=== PATIENT | female | born 1945 | race Caucasian/White ===

== ENCOUNTER 2017-04-07 08:45 | Day surgery (SDC) | payer MEDICARE, BC ==
[~2017-04-07 08:45] MED LIST: Metoclopramide 10 MG/2 ML SDV IV PRN; Sodium Chloride 0.9% 1,000 ML IV SCH; Sodium Chloride 0.9% 10 ML Syringe FLUSH PRN
[2017-04-07] MEDS ORDERED: ePHEDrine 50 MG/ML SDV ONE (10:30)
[2017-04-07] MEDS ORDERED: Propofol 200 MG/20 ML SDV ONE (10:30)
[2017-04-07 11:15] VITALS: BP 120/78
--- NOTE | 2017-04-07 12:03 | OR ---
DATE OF OPERATION: 04/07/2017 PREOPERATIVE DIAGNOSIS: History of colon polyps. POSTOPERATIVE DIAGNOSIS: History of colon polyps. PROCEDURE: Colonoscopy. ANESTHESIA: MAC. ESTIMATED BLOOD LOSS: None. COMPLICATIONS: None. INDICATIONS FOR THE PROCEDURE: The patient is a 71-year-old female, here for surveillance colonoscopy. She had previous colonoscopy five years ago and was found to have a polyp at that time. The patient denies any change in bowel habits or blood in the stool since that time. DESCRIPTION OF PROCEDURE: Informed consent was obtained from the patient. The patient was taken to the operating room and placed on the table in the left lateral decubitus position. Monitored anesthesia care was administered. Digital rectal exam revealed no masses. Colonoscope was then advanced through the anus directed towards the cecum. Abdominal pressure was utilized. Cecum was reached, identified by ileocecal valve and appendiceal orifice. The cecum appeared to be normal. The colonoscope was then slowly withdrawn. No masses, no polyps, no areas of inflammation or ischemia, and no AV malformations were identified. The patient did have some mild diverticulosis in the sigmoid colon, otherwise unremarkable. Colonoscope was then withdrawn to the rectum. Rectum was also unremarkable. Colonoscope was then removed. The patient tolerated the procedure well and was brought to recovery room in good condition. FINDINGS: Sigmoid diverticulosis. RECOMMENDATIONS: Would recommend repeat colonoscopy in five years due to history of polyps. HOME/KANE /[id number]
== END 2017-04-07 11:38 | disposition home or self-care (01) ==
LOC: LB.SDS 08:45
PROVIDERS: ATTEND Surgery
DX: Z12.11 Encounter for screening for malignant neoplasm of colon (principal); K57.30 Diverticulosis of large intestine without perforation or abscess without bleeding; Z86.010 Personal history of colon polyps; Z88.1 Allergy status to other antibiotic agents; Z79.01 Long term (current) use of anticoagulants; Z79.899 Other long term (current) drug therapy
CPT/HCPCS: G0105; J2704; J7040; J7030

== ENCOUNTER → 2019-02-08 | Outpatient (CLI) | payer MEDICARE | LOC: LB.COAG 10:40 | PROVIDERS: ATTEND Nurse Practitioner Family | DX: Z51.81 Encounter for therapeutic drug level monitoring (principal); I63.9 Cerebral infarction, unspecified; Z79.01 Long term (current) use of anticoagulants | CPT/HCPCS: 85610 ==

== ENCOUNTER → 2019-03-07 | Outpatient (CLI) | payer MEDICARE | LOC: LB.COAG 09:55 | PROVIDERS: ATTEND Nurse Practitioner Family | DX: Z51.81 Encounter for therapeutic drug level monitoring (principal); I63.9 Cerebral infarction, unspecified; Z79.01 Long term (current) use of anticoagulants | CPT/HCPCS: 85610 ==

== ENCOUNTER 2021-08-11 06:58 | Observation (INO) | payer MEDICARE ==
[2021-08-11] MEDS ORDERED: Acetaminophen 500 MG Tab PO ONE (07:25)
[2021-08-11] MEDS ORDERED: Morphine 2 MG/ML SYRINGE IVPUSH ONE ×3 (08:10→12:33)
[2021-08-11] MEDS: Sodium Chloride 0.9% 10 ML Syringe FLUSH PRN ×2 (08:20→09:10)
[2021-08-11] MEDS ORDERED: Morphine 2 MG/ML SYRINGE ONE ×2 (08:27→09:20)
[2021-08-11] MEDS ORDERED: Morphine 2 MG/ML SYRINGE IVPUSH PRN (10:00)
[2021-08-11] MEDS ORDERED: traMADol 50 MG Tab PO ONE (16:14)
[2021-08-11] MEDS: Acetaminophen 500 MG Tab PO PRN (16:45)
[2021-08-12] MEDS: Acetaminophen 500 MG Tab PO PRN (00:08)
[2021-08-12] MEDS ORDERED: traMADol 50 MG Tab PO PRN (06:03)
[2021-08-12] MEDS ORDERED: LUTEIN PO SCH (08:00)
[2021-08-12] MEDS ORDERED: FOLIC PO SCH (08:00)
[2021-08-12] MEDS ORDERED: [UNRECOGNIZED DRUG - OTHER] PO SCH (08:00)
[2021-08-12] MEDS ORDERED: MULTIVIT MIN PO SCH (08:00)
[2021-08-12] MEDS ORDERED: IRON PO SCH (08:00)
[2021-08-12] MEDS ORDERED: Multivitamins with Iron/Calcium/Folic Acid/Minerals Tab PO SCH (08:00)
[2021-08-12] MEDS ORDERED: Warfarin 5 MG Tab PO SCH ×3 (08:00)
[2021-08-12 08:14] VITALS: BP 142/92; PULSE 86
[2021-08-13] MEDS ORDERED: Warfarin 5 MG Tab PO SCH (08:00)
== END 2021-08-12 10:15 | disposition home or self-care (01) ==
LOC: LB.ED 06:58 → LB.MS 08:50
PROVIDERS: ADMIT Nurse Practitioner Family; ATTEND Nurse Practitioner Family
DX: S22.42XA Multiple fractures of ribs, left side, initial encounter for closed fracture (principal); R68.89 Other general symptoms and signs; Z88.0 Allergy status to penicillin; F41.9 Anxiety disorder, unspecified; F32.A Depression, unspecified; Z86.73 Personal history of transient ischemic attack (TIA), and cerebral infarction without residual deficits; W18.40XA Slipping, tripping and stumbling without falling, unspecified, initial encounter; Z20.822 Contact with and (suspected) exposure to COVID-19
CPT/HCPCS: 36415; 71101-LT; 80053; 85025; 85610; 93005; 93010; 96374; 96376; 97161-GP; 97165-GO; 99217; 99218; 99284-25; A9270-GY; G0378; J2270; J3490; U0002